=== PATIENT | male | born 1950 | race American Indian/Alaskan Native ===

== ENCOUNTER 2017-02-12 07:44 | Emergency (ER) | payer MEDICARE, OTHER ==
[2017-02-12 08:10] VITALS: RESP 16; O2SAT 97; BMI 31.1
--- NOTE | 2017-02-12 08:54 | ED PDOC ---
Arrival/HPI - General Chief Complaint: Eye Problem Time Seen by Provider: 02/12/17 07:59 Historian: Patient - History of Present Illness Narrative History of Present Illness (Text): 02/12/17 18:47 A 66 year old male, whose past medical history includes hypertension, presents to the emergency department complaining of a cough for about a week and watery eyes for the past three days. Patient reports a productive cough with yellow phlegm. Denies any fever or any other complaints at this time. Denies smoking. PMD: Dr. Cuadra Time/Duration: 1 week, Other (3 days) Symptom Onset: Sudden Symptom Course: Unchanged Activities at Onset: Rest Context: Home Past Medical History - Provider Review Nursing Documentation Reviewed: Yes - Renal Hx Kidney Stones: Yes - Integumentary Other/Comment: Lyphoma right back - Gastrointestinal Hx Hemorrhoids: Yes - Psychiatric Hx Substance Use: No Family/Social History - Physician Review Nursing Documentation Reviewed: Yes Family/Social History: No Known Family HX Smoking Status: Never Smoked Hx Alcohol Use: No Hx Substance Use: No Allergies/Home Meds Allergies/Adverse Reactions: Allergies No Known Allergies Allergy (Verified 02/12/17 08:12) Home Medications: Home Meds Medication Instructions Recorded Confirmed Allopurinol [Zyloprim] 100 mg PO 02/12/17 Benazepril HCl [Lotensin] 10 mg PO 02/12/17 Finasteride [Proscar] 5 mg PO 02/12/17 Simvastatin 20 mg PO 02/12/17 Simvastatin [Zocor] 20 mg PO 02/12/17 Tamsulosin HCl [Flomax] 0.4 mg PO 02/12/17 Vardenafil HCl [Levitra] 02/12/17 Review of Systems - Physician Review All systems were reviewed & negative as marked: Yes - Review of Systems Constitutional: absent: Fevers Eyes: Other (watery and red eyes) Respiratory: Cough Physical Exam - Physical Exam Narrative Physical Exam (Text): Constitutional: No acute distress. Head: Normocephalic. Atraumatic. Eyes: PERRL. EOMI without pain. Bilateral injection, purulent discharge. ENT: Moist mucous membranes. Neck: Supple. No lymphadenopathy. Cardiovascular: Regular rate. Chest: No tenderness. Respiratory: Clear to auscultation bilaterally. GI: Soft. Nontender. Nondistended. Back: No CVA tenderness. Musculoskeletal: No tenderness or swelling of extremities. Skin: No rash. Neurologic: Alert, no focal deficit. Vital Signs Reviewed: Yes Vital Signs Temp Pulse Resp BP Pulse Ox 02/12/17 09:42 97.6 F 76 16 132/72 97 02/12/17 08:00 97.8 F 78 16 127/75 97 Temperature: Afebrile Blood Pressure: Normal Pulse: Regular Respiratory Rate: Normal Appearance: Positive for: Well-Appearing, Non-Toxic, Comfortable Pain Distress: None Mental Status: Positive for: Alert and Oriented X 3 Medical Decision Making ED Course and Treatment: 02/12/17 10:07 Impression: A 66 year old male with a URI with following conjunctivitis. Plan: -- Polytrim Recommended OTC Dayquil, f/u PMD, instructed to return to ER for worsening pain , fever, neck stiffness, vomiting, dyspnea, or any other problem. - Scribe Statement The provider has reviewed the documentation as recorded by the Tila Nowak Provider Scribe Attestation: All medical record entries made by the Tila were at my direction and personally dictated by me. I have reviewed the chart and agree that the record accurately reflects my personal performance of the history, physical exam, medical decision making, and the department course for this patient. I have also personally directed, reviewed, and agree with the discharge instructions and disposition. Disposition/Present on Arrival - Present on Arrival Any Indicators Present on Arrival: No History of DVT/PE: No History of Uncontrolled Diabetes: No Urinary Catheter: No History of Decub. Ulcer: No History Surgical Site Infection Following: None - Disposition Have Diagnosis and Disposition been Completed?: Yes Diagnosis: Conjunctivitis, URI (upper respiratory infection) Disposition Time: 08:55 Patient Plan: Discharge Patient Problems: Current Active Problems Problem Status Onset Conjunctivitis Acute URI (upper respiratory infection) Acute Condition: STABLE Discharge Instructions (ExitCare): Upper Respiratory Infection (ED) Prescriptions: Polymyxin/Trimethoprim Sulfate [Polytrim Ophth Soln] 1 drop OU Q3H #1 bottle Referrals: Kurt Cuadra MD [Primary Care Provider] - Follow up with primary
[2017-02-12 09:44] VITALS: BP 132/72; PULSE 76; TEMP 97.6
== END 2017-02-12 09:42 | disposition home or self-care (01) ==
LOC: ED 07:44
DX: J06.9 Acute upper respiratory infection, unspecified (principal); H10.9 Unspecified conjunctivitis

== ENCOUNTER 2017-02-17 03:10 | Emergency (ER) | payer MEDICARE, OTHER ==
[2017-02-17 03:10] VITALS: BMI 31.1
--- NOTE | 2017-02-17 03:48 | ED PDOC ---
Arrival/HPI - General Chief Complaint: Bite Time Seen by Provider: 02/17/17 03:15 Historian: Patient - History of Present Illness Narrative History of Present Illness (Text): 02/17/17 03:40 A 66 year old male, whose past medical history includes hypertension, presents to the emergency department complaining of right arm swelling for the past two days. Patient notes pruritis, but denies any pain. No trauma or injury. Denies any fever, chills or any other complaints at this time. No history of diabetes. PMD: Dr. Cuadra Symptom Onset: Sudden Symptom Course: Unchanged Activities at Onset: Rest Context: Home Associated Symptoms (Text): none Past Medical History - Provider Review Nursing Documentation Reviewed: Yes - Renal Hx Kidney Stones: Yes - Integumentary Other/Comment: Lyphoma right back - Gastrointestinal Hx Hemorrhoids: Yes - Psychiatric Hx Substance Use: No Family/Social History - Physician Review Nursing Documentation Reviewed: Yes Family/Social History: No Known Family HX Smoking Status: Former Smoker Hx Alcohol Use: No Hx Substance Use: No Allergies/Home Meds Allergies/Adverse Reactions: Allergies No Known Allergies Allergy (Verified 02/12/17 08:12) Home Medications: Home Meds Medication Instructions Recorded Confirmed Allopurinol [Zyloprim] 100 mg PO DAILY 02/12/17 02/17/17 Benazepril HCl [Lotensin] 10 mg PO DAILY 02/12/17 02/17/17 Finasteride [Proscar] 5 mg PO DAILY 02/12/17 02/17/17 Simvastatin [Zocor] 20 mg PO HS 02/12/17 02/17/17 Tamsulosin HCl [Flomax] 0.4 mg PO DAILY 02/12/17 02/17/17 Review of Systems - Physician Review All systems were reviewed & negative as marked: Yes Physical Exam - Physical Exam Narrative Physical Exam (Text): 02/17/17 03:40 - Review of Systems Constitutional: Normal. absent: Fatigue, Weight Change, Fevers Eyes: Normal ENT: Normal Respiratory: Normal absent: SOB, Cough, Sputum Cardiovascular: Normal absent: Chest pain, Palpitations, Syncope Gastrointestinal: Normal absent: Abdominal pain, Diarrhea, Nausea, Vomiting Genitourinary: Normal. absent: Dysuria, Frequency, Hematuria Musculoskeletal: Normal. absent: Arthralgias, Back Pain, Neck Pain Skin: right arm swelling Neurological: Normal absent: Focal Weakness Endocrine: Normal Hemo/Lymphatic: Normal Psychiatric: Normal - Physical exam Patient appears age appropriate, speaking full sentences without difficulty - Systems Exam Head: Present: Atraumatic, Normocephalic Pupils: Present: PERRL Extraocular Muscles: Present: EOMI Conjunctiva: Present: Normal Mouth: Present: Moist Mucous Membranes Neck: Present: Normal Range of Motion. No: MIDLINE TENDERNESS, Paraspinal Tenderness Respiratory/Chest: Present: Clear to Auscultation, Good Air Exchange. No: Respiratory Distress, Accessory Muscle Use, Tachypnic Cardiovascular: Present: Regular Rate and Rhythm, Normal S1, S2, Peripheral Pulses Present. No: Murmurs Abdomen: Present: Normal Bowel Sounds, No: Tenderness, Peritoneal Signs, Rebound, Guarding, Distention Back: Present: Normal Inspection. No: Midline Tenderness, Paraspinal Tenderness Upper Extremity: Present: Normal Inspection. No: Cyanosis, Edema Lower Extremity: Present: Normal Inspection. No: Edema Neurological: Present: GCS=15, Speech Normal, cranial nerves II through XII fully intact with no cerebellar abnormality, neuro-sensory fully intact. No focal neurological deficits. Skin: Present: 5 cm X 5 cm erythematous, warm, indurated, non fluctuant area of R arm No: Rashes Lymphatic: Present: OX3, NI, NC Psychiatric: Present: Alert, Oriented x 3, Normal Insight, Normal Concentration Vital Signs Reviewed: Yes Vital Signs Temp Pulse Resp BP Pulse Ox 02/17/17 03:17 98.6 F 78 17 157/82 H 98 Temperature: Afebrile Blood Pressure: Hypertensive Pulse: Regular Respiratory Rate: Normal Appearance: Positive for: Well-Appearing, Non-Toxic, Comfortable Pain Distress: None Mental Status: Positive for: Alert and Oriented X 3 Medical Decision Making ED Course and Treatment: 02/17/17 03:40 Impression: A 66 year old male with right arm swelling. On physical exam, patient has a 5 cm X 5 cm erythematous, warm, indurated, non fluctuant area. Distal neurovasc intact. Pt afebrile, denies hx of DM, well appearing, in no distress Differential Diagnosis included but are not limited to: cellulitis Plan: -- dc home on PO abx Prior Visits: Notes and results from previous visits were reviewed. Patient last reported to the emergency department on 02/12/17 for evaluation of cough and watery eyes. Progress Notes: 02/17/17 03:45 Patient is in no acute distress. Patient in agreement with plan to be discharged home with antibiotics. Patient is stable for discharge. Patient was instructed to follow up with PMD early next week. - Scribe Statement The provider has reviewed the documentation as recorded by the Marleyibcheyenne Nowak Provider Scribe Attestation: All medical record entries made by the Scribe were at my direction and personally dictated by me. I have reviewed the chart and agree that the record accurately reflects my personal performance of the history, physical exam, medical decision making, and the department course for this patient. I have also personally directed, reviewed, and agree with the discharge instructions and disposition. Disposition/Present on Arrival - Present on Arrival Any Indicators Present on Arrival: No History of DVT/PE: No History of Uncontrolled Diabetes: No Urinary Catheter: No History of Decub. Ulcer: No History Surgical Site Infection Following: None - Disposition Have Diagnosis and Disposition been Completed?: Yes Diagnosis: Cellulitis of arm Disposition: HOME/ ROUTINE Disposition Time: 03:46 Patient Plan: Discharge Condition: GOOD Discharge Instructions (ExitCare): Cellulitis (ED) Additional Instructions: PLEASE RETURN TO THE EMERGENCY DEPARTMENT FOR NEW OR WORSENING SYMPTOMS. RETURN RIGHT AWAY IF YOU CANNOT FOLLOW UP WITH YOUR PRIMARY CARE DOCTOR, CLINIC, OR SPECIALIST IN 1-2 DAYS. RETURN TO THE ER RIGHT AWAY FOR FEVERS, CHILLS, PAIN. Prescriptions: Cephalexin [Keflex] 500 mg PO TID #21 capsule Sulfamethoxazole/Trimethoprim [Bactrim DS 800 mg-160 mg] 1 tab PO Q12 #14 tab Referrals: Kurt Cuadra MD [Family Provider] - Follow up with primary
[2017-02-17 12:31] VITALS: BP 157/82; PULSE 78; RESP 17; TEMP 98.6; O2SAT 98
== END 2017-02-17 03:55 | disposition home or self-care (01) ==
LOC: ED 03:10
DX: L03.113 Cellulitis of right upper limb (principal)

== ENCOUNTER 2018-04-15 11:22 | Emergency (ER) | payer MEDICARE, OTHER ==
[2018-04-15 11:23] VITALS: BMI 30.3
--- NOTE | 2018-04-15 12:01 | ED PDOC ---
Arrival/HPI - General Chief Complaint: Male Genitourinary Time Seen by Provider: 04/15/18 11:25 Historian: Patient - History of Present Illness Narrative History of Present Illness (Text): 04/15/18 11:30 67 year old male, whose past medical history includes prostate problems and urinary retention, presents to the Emergency department for urine retention since this morning. Patient states he was scheduled for a GI procedure for a colonoscopy today, and was sent to the emergency department due to problem urinating. Patient says he feels distended, has the urge to urinate, but was only able to urinate a few drops this morning. Patient denies any fevers, chills , chest pain, shortness of breath, vomiting, diarrhea, back pain, neck pain, headache, dizziness, or any other complaint. Time/Duration: 4-6 hours (patient notes urine retention problem since this morning) Symptom Onset: Sudden Symptom Course: Unchanged Activities at Onset: Light Past Medical History - Provider Review Nursing Documentation Reviewed: Yes - Cardiac Hx Pacemaker: No - Renal Hx Kidney Stones: Yes - Hematological/Oncological Hx Blood Transfusions: No - Integumentary Other/Comment: Lyphoma right back - Musculoskeletal/Rheumatological Hx Musculoskeletal Disorders: No - Gastrointestinal Hx Hemorrhoids: Yes - Psychiatric Hx Substance Use: No - Anesthesia Hx Anesthesia Reactions: No Hx Malignant Hyperthermia: No Family/Social History - Physician Review Nursing Documentation Reviewed: Yes Family/Social History: No Known Family HX Smoking Status: Former Smoker Hx Alcohol Use: No Hx Substance Use: No Allergies/Home Meds Allergies/Adverse Reactions: Allergies No Known Allergies Allergy (Verified 04/15/18 11:23) Home Medications: Home Meds Medication Instructions Recorded Confirmed Allopurinol [Zyloprim] 100 mg PO DAILY 02/12/17 04/03/18 Finasteride [Proscar] 5 mg PO DAILY 02/12/17 04/03/18 Simvastatin [Zocor] 20 mg PO HS 02/12/17 04/03/18 Tamsulosin HCl [Flomax] 0.4 mg PO DAILY 02/12/17 04/03/18 Review of Systems - Physician Review All systems were reviewed & negative as marked: Yes - Review of Systems Constitutional: Normal. absent: Fevers Eyes: Normal ENT: Normal Respiratory: Normal Cardiovascular: Normal Gastrointestinal: Normal, Abdominal Pain. absent: Diarrhea, Nausea, Vomiting Genitourinary Male: Normal Musculoskeletal: Normal Skin: Normal Neurological: Normal Endocrine: Normal Hemo/Lymphatic: Normal Psychiatric: Normal Physical Exam Vital Signs Reviewed: Yes Vital Signs Temp Pulse Resp BP Pulse Ox 04/15/18 11:24 97.9 F 88 22 138/90 100 Temperature: Afebrile Blood Pressure: Normal Pulse: Regular Respiratory Rate: Normal Appearance: Positive for: Well-Appearing, Non-Toxic Pain Distress: Mild Mental Status: Positive for: Alert and Oriented X 3 - Systems Exam Head: Present: Atraumatic, Normocephalic Pupils: Present: PERRL Extroacular Muscles: Present: EOMI Conjunctiva: Present: Normal Mouth: Present: Moist Mucous Membranes Neck: Present: Normal Range of Motion Respiratory/Chest: Present: Clear to Auscultation, Good Air Exchange. No: Respiratory Distress, Accessory Muscle Use Cardiovascular: Present: Regular Rate and Rhythm, Normal S1, S2. No: Murmurs Abdomen: Present: Distention (+ abdomen distended, specifically on suprapubic). No: Tenderness, Peritoneal Signs Back: Present: Normal Inspection Upper Extremity: Present: Normal Inspection. No: Cyanosis, Edema Lower Extremity: Present: Normal Inspection. No: Edema Neurological: Present: GCS=15, CN II-XII Intact, Speech Normal Skin: Present: Warm, Dry, Normal Color. No: Rashes Psychiatric: Present: Alert, Oriented x 3, Normal Insight, Normal Concentration Disposition/Present on Arrival - Present on Arrival History of DVT/PE: No History of Uncontrolled Diabetes: No Urinary Catheter: No History of Decub. Ulcer: No History Surgical Site Infection Following: None - Disposition
[2018-04-15 12:11] LABS: URINE BILIRUBIN NEGATIVE (NEGATIVE); URINE BLOOD TRACE-INTACT (NEGATIVE); URINE GLUCOSE (UA) NEGATIVE (NEGATIVE); URINE LEUKOCYTE ESTERASE NEGATIVE Leu/uL (NEGATIVE); URINE PROTEIN NEGATIVE mg/dL (<30 mg/dL); URINE UROBILINOGEN 0.2 E.U./dL (<1 E.U./dL)
--- NOTE | 2018-04-15 12:12 | ED PDOC ---
Arrival/HPI - General Chief Complaint: Male Genitourinary Time Seen by Provider: 04/15/18 11:25 Historian: Patient - History of Present Illness Narrative History of Present Illness (Text): 04/15/18 11:30 67 year old male, whose past medical history includes hld/gout/prostate problems and urinary retention, presents to the Emergency department for urine retention since this morning. Patient states he was scheduled for a GI procedure for a colonoscopy today, and was sent to the emergency department due to problem urinating. Patient says he feels distended, has the urge to urinate, but was only able to urinate a few drops this morning. Patient denies any fevers , chills, chest pain, shortness of breath, vomiting, diarrhea, back pain, neck pain, headache, dizziness, or any other complaint. Time/Duration: 4-6 hours (patient notes urine retention problem since this morning) Symptom Onset: Sudden Symptom Course: Unchanged Activities at Onset: Light Past Medical History - Provider Review Nursing Documentation Reviewed: Yes - Cardiac Hx Pacemaker: No - Renal Hx Kidney Stones: Yes - Hematological/Oncological Hx Blood Transfusions: No - Integumentary Other/Comment: Lyphoma right back - Musculoskeletal/Rheumatological Hx Musculoskeletal Disorders: No - Gastrointestinal Hx Hemorrhoids: Yes - Psychiatric Hx Substance Use: No - Anesthesia Hx Anesthesia Reactions: No Hx Malignant Hyperthermia: No Family/Social History - Physician Review Nursing Documentation Reviewed: Yes Family/Social History: No Known Family HX Smoking Status: Former Smoker Hx Alcohol Use: No Hx Substance Use: No Allergies/Home Meds Allergies/Adverse Reactions: Allergies No Known Allergies Allergy (Verified 04/15/18 11:23) Home Medications: Home Meds Medication Instructions Recorded Confirmed Allopurinol [Zyloprim] 100 mg PO DAILY 02/12/17 04/03/18 Finasteride [Proscar] 5 mg PO DAILY 02/12/17 04/03/18 Simvastatin [Zocor] 20 mg PO HS 02/12/17 04/03/18 Tamsulosin HCl [Flomax] 0.4 mg PO DAILY 02/12/17 04/03/18 Review of Systems - Physician Review All systems were reviewed & negative as marked: Yes - Review of Systems Constitutional: absent: Fevers Respiratory: absent: SOB, Cough Cardiovascular: absent: Chest Pain Gastrointestinal: absent: Diarrhea, Nausea, Vomiting Genitourinary Male: Urinary Output Changes (+ for urine retention and +decrease urine stream). absent: Normal Musculoskeletal: absent: Back Pain, Neck Pain Neurological: absent: Headache, Dizziness Psychiatric: Normal Physical Exam Vital Signs Reviewed: Yes Vital Signs Temp Pulse Resp BP Pulse Ox 04/15/18 11:24 97.9 F 88 22 138/90 100 Temperature: Afebrile Blood Pressure: Normal Pulse: Regular Respiratory Rate: Normal Appearance: Positive for: Well-Appearing, Non-Toxic Pain Distress: Moderate Mental Status: Positive for: Alert and Oriented X 3 - Systems Exam Head: Present: Atraumatic, Normocephalic Pupils: Present: PERRL Extroacular Muscles: Present: EOMI Conjunctiva: Present: Normal Mouth: Present: Moist Mucous Membranes Neck: Present: Normal Range of Motion Respiratory/Chest: Present: Clear to Auscultation, Good Air Exchange. No: Respiratory Distress, Accessory Muscle Use Cardiovascular: Present: Regular Rate and Rhythm, Normal S1, S2. No: Murmurs Abdomen: Present: Distention (+ abdomen distended, specifically on suprapubic). No: Tenderness, Peritoneal Signs, Rebound, Guarding Back: Present: Normal Inspection Upper Extremity: Present: Normal Inspection. No: Cyanosis, Edema Lower Extremity: Present: Normal Inspection. No: Edema Neurological: Present: GCS=15, CN II-XII Intact, Speech Normal Skin: Present: Warm, Dry, Normal Color. No: Rashes Psychiatric: Present: Alert, Oriented x 3, Normal Insight, Normal Concentration Medical Decision Making ED Course and Treatment: 04/15/18 11:30 Impression: 67 year old male presents to the emergency department for urine retention problem since this morning. Differential Diagnosis included but are not limited to: Plan: -- Urinary Cathether Insertion once by me on the bed side, bed side bladder scanner show approx. 600cc -- Urinalysis -- Reassess and disposition Prior Visits: Notes and results from previous visits were reviewed. Progress Notes: 04/15/18 11:35 -Pt.'s penis clean with betadine swab, sterile procedure, 16F urine crowell used by me, inserted into the urethra, no obstructions, visible urine draining down with no hematuria, inflated the ballon to 10cc, secured, total procedure time 20 minutes. -Pt. Patient feels completely better after Crowell catheter has been placed in. Drained about 650 cc of straw colored urine. 04/15/18 12:42 -Pt. is asymptomatic at this time. -UA show no UTI, will prophylatically place the patient on keflex -Discharge home with keflex, crowell leg bag, continue your prostate medications, follow up with your own pmd and urologist within 2 days, return to the ER for any new or worsening signs or symptoms. - Lab Interpretations Lab Results: Lab Results 04/15/18 11:50: Urine Color Straw, Urine Appearance Clear, Urine pH 6.0, Ur Specific Harrison <= 1.005, Urine Protein Negative, Urine Glucose (UA) Negative, Urine Ketones Negative, Urine Blood Trace-intact H, Urine Nitrate Negative, Urine Bilirubin Negative, Urine Urobilinogen 0.2, Ur Leukocyte Esterase Negative , Urine RBC Pending, Urine WBC Pending - PA / CSR / Resident Statement MD/DO has reviewed & agrees with the documentation as recorded. - Scribe Statement The provider has reviewed the documentation as recorded by the Scribe Emilia Mackey All medical record entries made by the Scribe were at my direction and personally dictated by me. I have reviewed the chart and agree that the record accurately reflects my personal performance of the history, physical exam, medical decision making, and the department course for this patient. I have also personally directed, reviewed, and agree with the discharge instructions and disposition. Disposition/Present on Arrival - Present on Arrival Any Indicators Present on Arrival: No History of DVT/PE: No History of Uncontrolled Diabetes: No Urinary Catheter: No History of Decub. Ulcer: No History Surgical Site Infection Following: None - Disposition Have Diagnosis and Disposition been Completed?: Yes Diagnosis: Urinary retention Disposition: HOME/ ROUTINE Disposition Time: 12:48 Patient Plan: Discharge Condition: IMPROVED Additional Instructions: -Discharge home with keflex, crowell leg bag, continue your prostate medications, follow up with your own pmd and urologist within 2 days, return to the ER for any new or worsening signs or symptoms. Prescriptions: Cephalexin [cephalexin] 500 mg PO BID #14 cap Referrals: Marvin Arguello MD [Staff Provider] - Follow up with primary Forms: [employer] (Malagasy), WORK NOTE
[2018-04-15 12:35] LABS: URINE APPEARANCE CLEAR (CLEAR); URINE COLOR STRAW (YELLOW)
[2018-04-15 12:56] LABS: URINE BACTERIA FEW (NEG); URINE WBC 0 - 2 /hpf (0-6)
[2018-04-15 13:13] VITALS: BP 106/71; PULSE 66; RESP 18; TEMP 97.8; O2SAT 97
== END 2018-04-15 13:15 | disposition home or self-care (01) ==
LOC: ED 11:22
DX: R33.9 Retention of urine, unspecified (principal); E78.5 Hyperlipidemia, unspecified; Z87.891 Personal history of nicotine dependence